=== PATIENT | male | born 1930 | race Caucasian/White ===

== ENCOUNTER 2016-08-29 08:45 | Day surgery (SDC) | payer MEDICARE, BC ==
[2016-08-26 11:16] LABS: BASOPHILS 0.5 % (0-2); EOSINOPHILS 2.9 % (0-7); HEMATOCRIT 41.7 % (42.0-54.0); HEMOGLOBIN 14.4 g/dL (13.5-17.5); IMMATURE GRANULOCYTES 0.6 % (0-5); LYMPHOCYTES 17.9 % (15-50); MCH 32.9 pg (26.0-34.0); MCHC 34.5 g/dL (31.0-37.0); MCV 95.2 fL (80.0-100.0); MEAN PLATELET VOLUME 10.8 fL (7.4-10.4); NEUTROPHILS 68.1 % (40-80); PLATELET COUNT 112 10x3/uL (130-400); RBC 4.38 10x6/uL (4.20-6.10); RDW 15.4 % (11.5-14.5); WBC 6.2 10x3/uL (4.8-10.8)
[2016-08-26 11:23] LABS: ANION GAP 11.2 mmol/L (8-16); CALCIUM 9.1 mg/dL (8.5-10.1); CARBON DIOXIDE 29.7 mmol/L (21.0-32.0); CREATININE - SERUM 1.2 mg/dL (0.6-1.3); POTASSIUM - SERUM 3.9 mmol/L (3.5-5.1)
[~2016-08-29] VITALS: Ht 190.5 cm; Wt 99.8 kg
[~2016-08-29 08:45] MED LIST: BENADRYL25 MG PO; MELATONIN 3 MG1 TAB PO; MULTIPLE VITAMI1 TA1 PO; NAPROXEN250 MG PO; ZIAC 2.5/6.25 M1 TAB PO
[2016-08-29] MEDS ORDERED: CIALIS2.5 MG PO (10:50)
[2016-08-29 11:10] VITALS: BP 174/72; Ht 190.5 cm; Wt 99.8 kg
[2016-08-29] MEDS ORDERED: HYDROCODONE-APA1 TAB PO (13:37)
--- NOTE | 2016-08-29 13:44 | NUR ---
RING REMOVED FROM RIGHT RING FINGER, TAKEN TO GIRL FRIEND. REPORTED TO PT
--- NOTE | 2016-09-01 11:39 | OP ---
PATIENT NAME: INDIANA BUSH JR MEDICAL RECORD: [id number] :30 LOCATION:D.OPS ADMISSION DATE: SURGEON: STACI FRENCH MD DATE OF OPERATION: 08/29/2016 Orthopedic Surgery Operative Note PREOPERATIVE DIAGNOSIS: Ganglion cyst, volar aspect of the right wrist. POSTOPERATIVE DIAGNOSIS: Ganglion cyst, volar aspect of right wrist. PROCEDURE: Excision of ganglion cyst, right wrist. SURGEON: Staci French MD. ANESTHESIA: General. INTRAOPERATIVE COMPLICATIONS: None. SUMMARY OF PATHOLOGIC FINDINGS: The patient had a ganglion cyst, likely from a tendon sheath. OPERATIVE SUMMARY IN DETAIL: After obtaining the appropriate preoperative orthopedic surgery consent as well as anesthetic consultation, evaluation and clearance, the patient was brought to the operating room and placed on the operating table in supine position.. After general laryngeal mask was administered, tourniquet was placed about the proximal aspect of the right upper extremity. Right upper extremity was then prepped and draped in a routine sterile fashion. The arm was elevated and exsanguinated, tourniquet was inflated to 250 mmHg. A transverse incision was made directly across the ganglion cyst. It was taken down to the level ganglion cyst, which was dissected around in its entirety and taken off of the stalk which appeared to attach to the flexor retinaculum. The wound was then irrigated and closed with 4-0 Prolene in routine interrupted fashion. The area was infiltrated locally with 0.25% Marcaine plain. Sterile dressings were applied. Tourniquet was deflated. The patient was awakened, taken to recovery room in stable condition. All final needle and sponge counts were correct. TRANSINT:[id number] Voice Confirmation ID: [id number] DOCUMENT ID: [id number] STACI FRENCH MD at 1139 CC: [id number] DICTATION DATE: 08/29/16 1350 ARRESTING GEAR OPERATOR: 08/29/16 1715 [facility] 08/29/[address] [address]
== END 2016-08-29 15:20 | disposition home or self-care (01) ==
LOC: D.OPS 08:45 → D.PAN 10:45 → D.OPS 11:00 → D.PAN 11:00 → D.OPS 15:20
PROVIDERS: Anesthesiology
DX: M67.431 Ganglion, right wrist (principal); F17.200 Nicotine dependence, unspecified, uncomplicated; I10 Essential (primary) hypertension; K21.9 Gastro-esophageal reflux disease without esophagitis; G47.30 Sleep apnea, unspecified; Z01.812 Encounter for preprocedural laboratory examination

== ENCOUNTER → 2018-08-23 09:39 | Outpatient (CLI) | payer MEDICARE, BC ==
[2016-08-29 11:10] VITALS: BMI 27.5
[~2018-08-23 09:39] MED LIST changes: +CIALIS2.5 MG PO; +HYDROCODONE-APA1 TAB PO
--- NOTE | 2018-08-27 15:06 | EC ---
PATIENT:INDIANA BUSH JR DATE OF SERVICE: 08/23/18 SEX: M MEDICAL RECORD: [id number] DATE OF : 30 LOCATION:[facility] AGE OF PATIENT: 88 ADMISSION DATE: 08/23/18 REFERRING PHYSICIAN: INTERPRETING PHYSICIAN: ALMITA ROBERTS MD ECHOCARDIOGRAM REPORT ECHO CHARGES 4 ECHO COMPLETE Date: 08/23/18 CLINICAL DIAGNOSIS: HTN/MITRAL/TRICUSPID REGURG, AORTIC INSUFF HX CAD/AFIB ECHOCARDIOGRAPHIC MEASUREMENTS (adult normal given) AC root (d.<3.7cm) 3.1 cm LV Septum d (<1.2 cm> 1.2 cm Valve Excursion 1.3 cm LV Septum (systole) 1.4 cm Left Atria (s.<4.0cm> 5.0 cm LVPW d(<1.2cm) 1.2 cm RV (d.<2.3cm) 4.6 cm LVPW (sytole) 1.6 cm LV diastole(<5.6CM) 5.3 cm MV E-F(>70mm/sec) cm LV systole 3.5 cm LVOT Diameter 2.0 cm MV exc.(>10mm) 2.3 cm Est.ejection fraction (50-75%) % DOPPLER: LVIT cm/sec A 53.0 cm/sec E 149 cm/sec LA cm/sec RVSP 26 mmHg LVOT 101 cm/sec AOP1/2T m/s Asc. Ao 228 cm/sec RVOT 95 cm/sec RA cm/sec PA 125 cm/sec AV Gradient Peak 20.81mmHg AV Mean 11.34mmHg AV Area 1.8 cm MV Gradient Peak 11.24mmHg MV Mean 3.96 mmHg MV Area cm COMMENTS: Waterproofer Helper: 2 DEVON HUANG Grappler: 3 Dr. Walters TAPE# PACS Pericardial Effusion N DATE OF SERVICE: Adequate 2D, color flow, spectral Doppler, and M-mode. LVH is present. LV internal dimension is normal. Wall motion is normal. EF is greater than or equal to 55%. Aortic valve is calcified with restriction of leaflet motion. Peak gradient 20 mmHg putting this in the very mild range. There is mild AI present as well. Left atrium is dilated at 5.0 cm. Mitral valve shows no prolapse. Mild MR. Right-sided chambers grossly normal. Mild TR. TRANSINT:[id number] Voice Confirmation ID: [id number] DOCUMENT ID: [id number] ECHOCARDIOGRAM REPORT [id number] INDIANA BUSH JR, GREGORY A MD at 1506 CC: [id number] DICTATION DATE: 08/24/18 1159 TELLER COORDINATOR: 08/24/18 1237 DEP CLI 08/23/18 [place] [id number]
== END | disposition home or self-care (01) ==
LOC: D.HCCARDIO 09:39
PROVIDERS: ATTEND Internal Medicine Interventional Cardiology
DX: I10 Essential (primary) hypertension (principal)

== ENCOUNTER 2019-07-16 06:53 | Outpatient (CLI) | payer MEDICARE, BC ==
[~2019-07-16] VITALS: Ht 190.5 cm; Wt 84.1 kg
--- NOTE | ~2019-07-16 | HEMODYNAMI ---
PATIENT:INDIANA BUSH JR MEDICAL RECORD: [id number] : 30 LOCATION:[facility] ADMISSION DATE: 07/16/19 Generatedon:07/16/201911:17 Patient name: INDIANA BUSH Patient #: [id number] SSN: DO B: 1930 Date of study: 07/16/2019 Page: Of Hemodynamic Procedure Report Patient Data Patient Demographics Procedure consent was obtained First Name: INDIANA Gender: Male Last Name: ELEAZAR Suffix: [facility] Initial: A : 1930 Patient #: [id number] Age: 89 year(s) Race: Unknown Additional ID: [id number] Contact details Address: [address] [place] [address] [place] State: [place] City: [place] Zip code: [address] Past Medical History Allergies Allergen Reaction Date Comments Reported Other allergy 07/16/2019 hydrococone Other allergy 07/16/2019 hydrocodone Admission Admission Data Admission Date: 07/16/2019 Admission Time: 6:53 Procedure Procedure Types Cath Procedure Peripheral Cath Diagnostic Procedure Crib Tender Peripheral Procedures Abd/Extremity Extremities Right Lower Ext Arterio Procedure Description Procedure Date Procedure Date: 07/16/2019 Procedure Start Time: 9:15 Procedure Staff Name Function Herbie Oliva MD Performing Physician Lois Santos RT Low Pressure Firer Tenisha Truong RN Nurse Taj Rolon RT Scrub Procedure Data Cath Procedure Fluoroscopy Diagnostic fluoroscopy Total fluoroscopy Time: time: 31.1 min 31.1 min Diagnostic fluoroscopy Total fluoroscopy dose: 261 dose: 261 mGy mGy Procedure Medications Medication Administration Route Dosage Heparin Flush Bag added to field 3 bags (1000units/500ml NS) Lidocaine 1% added to field 20 Versed I.V. 1 mg Fentanyl I.V. 50 mcg Heparin Bolus I.V. 4000 units Heparin Bolus I.V. 2000 units Heparin Bolus I.V. 2000 units Hemodynamics Rest Heart Rate: 49 (bpm) Snapshots Pre Cath Intra NCS Post Cath Vital Signs Time Heart Resp SPO2 etCO2 NIBP (mmHg) Rhythm Pain Sedation Rate (ipm) (%) (mmHg) Status Level (bpm) 9:09:31 41 27 100 15.8 Measuring NSR 0 (11) 10(A) , No pain 9:10:53 53 11 100 27.9 Time NSR 0 (11) 10(A) Exceeded , No pain 9:13:02 48 15 100 31.7 186/91(156) NSR 0 (11) 10(A) , No pain 9:17:37 40 7 100 20.4 176/73(165) NSR 0 (11) 10(A) , No pain 9:22:05 42 17 100 25.7 166/83(146) NSR 0 (11) 10(A) , No pain 9:26:29 47 18 100 16.6 147/76(130) NSR 0 (11) 8(A) , No pain 9:30:49 38 17 100 21.1 145/62(120) NSR 0 (11) 8(A) , No pain 9:35:15 45 13 100 16.6 134/48(124) NSR 0 (11) 8(A) , No pain 9:39:29 39 15 100 20 139/75(121) NSR 0 (11) 8(A) , No pain 9:43:45 53 18 100 20.4 126/74(106) NSR 0 (11) 8(A) , No pain 9:48:45 39 15 99 0 Measuring NSR 0 (11) 8(A) , No pain 9:49:03 44 15 100 1.5 143/68(131) NSR 0 (11) 8(A) , No pain 9:53:21 44 14 99 6.8 157/75(135) NSR 0 (11) 8(A) , No pain 9:57:41 46 12 100 11.3 157/70(115) NSR 0 (11) 8(A) , No pain 10:02:01 40 17 99 21.1 146/79(133) NSR 0 (11) 8(A) , No pain 10:06:24 33 15 100 0 152/65(138) NSR 0 (11) 8(A) , No pain 10:10:44 44 17 100 18.9 159/76(142) NSR 0 (11) 8(A) , No pain 10:15:08 41 17 100 9.8 167/73(151) NSR 0 (11) 8(A) , No pain 10:19:32 33 14 100 0 129/82(116) NSR 0 (11) 8(A) , No pain 10:24:31 32 13 100 11.3 Measuring NSR 0 (11) 8(A) , No pain 10:25:53 43 15 100 0 Time NSR 0 (11) 8(A) Exceeded , No pain 10:28:06 36 16 100 16.6 188/84(163) NSR 0 (11) 8(A) , No pain 10:32:34 38 17 100 15.8 168/88(154) NSR 0 (11) 8(A) , No pain 10:37:03 36 17 100 12.1 189/66(159) NSR 0 (11) 8(A) , No pain 10:41:31 38 13 100 12 198/98(183) NSR 0 (11) 8(A) , No pain 10:46:30 43 16 100 27.9 Measuring NSR 0 (11) 8(A) , No pain 10:47:03 51 19 100 16.6 196/95(168) NSR 0 (11) 8(A) , No pain 10:51:35 34 13 100 0 201/88(168) NSR 0 (11) 8(A) , No pain 10:56:34 37 16 100 16.6 Measuring NSR 0 (11) 8(A) , No pain 10:57:18 41 10 100 0 192/84(161) NSR 0 (11) 8(A) , No pain 11:01:48 43 17 100 15.1 204/91(190) NSR 0 (11) 8(A) , No pain 11:06:18 47 10 100 15.8 195/92(170) NSR 0 (11) 8(A) , No pain 11:10:55 37 12 100 1.5 209/77(189) NSR 0 (11) 8(A) , No pain 11:15:41 41 13 100 10.5 194/58(111) NSR 0 (11) 8(A) , No pain Medications Time Medication Route Dose Verified Delivered Reason Notes Effe ctiveness by by 8:53:08 Heparin Flush added 3 Herbie Stoner used for Bag to bags Hazel Oliva procedure (1000units/500ml field MD CARRILLO NS) 8:53:21 Lidocaine 1% added 20ml Herbie Stoner for local to vial Hazel Oliva anesthetic field MD CARRILLO 9:17:56 Versed I.V. 1 mg Herbie Steven for Hazel Truong RN sedation 9:18:08 Fentanyl I.V. 50 Herbie Steven for mcg Hazel Truong RN sedation 9:23:23 Heparin Bolus I.V. 4000 Herbie Tenisha Per units Hazel Truong RN physician 10:04:26 Heparin Bolus I.V. 2000 Herbie Steven Per units Hazel Truong RN physician 10:53:09 Heparin Bolus I.V. 2000 Herbie Steven Per units Hazel Truong RN physician Procedure Log Time Note 8:13:11 Use device set IR Diagnostic 8:15:11 BENTSON 145cm wire ([id number]) opened to sterile field. 8:15:12 Micropuncture VSI 4FR kit opened to sterile field. 8:15:12 SHEATH 5FR [place] ([id number]) opened to sterile field. 8:15:13 Cordis 6Fr BRITE TIP 11cm sheath opened to sterile field. 8:15:14 AMPLATZ Super Stiff 75cm wire ([id number]) opened to sterile field. 8:15:15 Tegaderm 4 x 4 (1626W) opened to sterile field. 8:15:17 Sterile Angiographic Pack opened to sterile field. 8:15:18 Bag Decanter (2002S) opened to sterile field. 8:53:08 Heparin Flush Bag (1000units/500ml NS) 3 bags added to field was administered by Herbie Oliva MD; used for procedure; Verbal order read back and verified. 8:53:21 Lidocaine 1% 20ml vial added to field was administered by Herbie gilmore MD; for local anesthetic; Verbal order read back and verified. 8:57:30 Time tracking: Regular hours (M-F 7:00 - 5:00) 9:07:29 Plan of Care:Hemodynamics will remain stable., Cardiac rhythm will remain stable., Comfort level will be maintained., Respiratory function will remain adequate., Patient/ family verbilizes understanding of procedure., Procedure tolerated without complication., Recovers from procedure without complications.. 9:07:35 Patient received from Outpatients to IR Alert and oriented. Tansferred to table in Supine position. 9:07:38 Signed procedure consent form obtained from patient. 9:07:40 ECG and BP/O2 sat monitors applied to patient. 9:07:41 Vital chart was started 9:07:42 Baseline sample Acquired. 9:07:46 Full Disclosure recording started 9:07:49 - 9:07:55 H&P Date Dictated: 07/16/2019 Within 30 days and on chart., H&P Addendum completed by physician on day of procedure. (MUST COMPLETE FOR ALL OUTPATIENTS). 9:07:56 Pre-procedure instructions explained to patient. 9:07:57 Pre-op teaching completed and patient verbalized understanding. 9:07:59 Family unavailable. 9:08:02 Patient NPO since Midnight. 9:08:48 Patient allergic to Other allergyhydrococone 9:09:15 Patient allergic to Other allergyhydrocodone 9:09:31 Is the patient allergic to Iodine/contrast media? No. 9:09:35 Is patient on blood thinner?No 9:09:38 Patient diabetic? No. 9:09:39 - 9:09:43 ----Pre-sedation anethsthesia assessment.---- 9:09:47 Previous problem with sedation/anesthesia? No ? 9:10:02 Snore? No 9:10:05 Sleep apnea? No 9:10:07 Deviated septum? No 9:10:10 Opens mouth fully? Yes 9:10:11 Sticks out tongue? Yes 9:10:14 Airway obstruction? No , a fib, arrythmia? 9:10:18 Dentures? No ? 9:10:20 - 9:10:24 Pre procedure: right dorsailis pedis pulse Doppler 9:10:29 Pre procedure: left dorsailis pedis pulse Doppler 9:10:33 Pre procedure: right posterior tibial pulse Doppler 9:10:39 Pre procedure: left posterior tibial pulse Doppler 9:10:58 Right groin area was prepped with chlora-prep and draped in sterile fashion 9:11:00 - 9:13:13 ROADRUNNER .035 145 glide wire ([id number]) opened to sterile field. 9:13:15 CXI Catheter 90cm (X00540) opened to sterile field. 9:13:47 Physician arrived 9:13:49 --------ALL STOP TIME OUT------ 9:13:49 Final Timeout: patient, procedure, and site verified with staff and physician. All members of the team are in agreement. 9:14:12 Fire Safety Assessment: A--An alcohol-based skin anteseptic being used preoperatively., C--Open oxygen or nitrous oxide is being used. 9:14:24 2) 60-89 Mildly reduced kidney function, and other findings (as for stage 1) point to kidney disease. 9:14:45 Maximum allowable contrast dose (3.7 X eGFR X 0.75)171 ml. 9:15:30 Baseline sample Acquired. 9:15:40 Procedure started. 9:15:44 Local anesthetic to right femoral artery with Lidocaine 1% by Herbie Oliva MD.INITIAL ACCESS ONLY 9:15:47 Arterial access obtained using ultrasound guidance. 9:17:56 Versed 1 mg I.V. was administered by Tenisha Truong RN; for sedation; Verbal order read back and verified. 9:18:08 Fentanyl 50 mcg I.V. was administered by Tenisha Truong RN; for sedation ; Verbal order read back and verified. 9:23:23 Heparin Bolus 4000 units I.V. was administered by Tenisha Truong RN; Per physician; Verbal order read back and verified. 9:35:35 Viance Crossing Catheter Standard ([id number]) opened to sterile field. 9:35:44 CHOICE PT Extra Support J 300cm guide wire ([id number]) opened to steril e field. 9:35:56 Tegaderm 6 x 8 (1628) opened to sterile field. 9:49:27 COIL Tornado 4MM (G56739) opened to sterile field. 9:55:39 GLIDE WIRE ANGLE 260cm (CH6609) opened to sterile field. 10:03:38 INFLATOR BasixTOUCH (TS8127) opened to sterile field. 10:03:40 Enteer Guidewire Stiff opened to sterile field. 10:03:41 Enteer Re-entry cath 2.75 opened to sterile field. 10:04:02 CHOICE PT Extra Support J 300cm guide wire ([id number]) opened to steril e field. 10:04:26 Heparin Bolus 2000 units I.V. was administered by Tenisha Truong RN; Per physician; Verbal order read back and verified. 10:17:00 CXI SUPPORT .018 150CM STR catheter (J71389) opened to sterile field. 10:32:44 Enteer Guidewire Stiff opened to sterile field. 10:45:16 CHOICE PT Extra Support J 300cm guide wire (8066669S6) opened to steril e field. 10:45:50 Inflate balloon Inflation number: 1 A NANOCROSS ELITE 2MM X 80 X 150 ([id number]) was prepped and advanced across the Undefined1 , then inflated. 10:50:22 Inflate balloon Inflation number: 2 A [place]AN[place]OSS ELITE .014 3.5MM-3MM X 210 X 150 ([id number]) was prepped and advanced across the Undefined1 , then inflated . 10:53:09 Heparin Bolus 2000 units I.V. was administered by Tenisha Truong RN; Per physician; Verbal order read back and verified. 11:00:04 COPILOT Valve Control (4742962) opened to sterile field. 11:13:05 EXOSEAL 6Fr (EX600) opened to sterile field. 11:14:19 Procedure ended.(Physican Out) 11:14:47 Fluoroscopy time 31.10 minutes. 11:14:53 Fluoroscopy dose: 261 mGy 11:14:53 Flurop Dose total: 261 11:15:39 Procedure and supply charges have been captured, reviewed, submitted an d are correct. 11:16:42 Report given to Outpatients. 11:17:38 Vital chart was stopped Intervention Summary Intervention Notes Time ActionType Lesion and Equipment Used Action# Pressure Duration Attributes 10:45:50 Inflate Undefined1 NANOCROSS ELITE 1 0 00:00 balloon 2MM X 80 X 150 ([id number]) 10:50:22 Inflate Undefined1 NANOCROSS ELITE 2 0 00:00 balloon .014 3.5MM-3MM X 210 X 150 ([id number]) Device Usage Item Name Manufacture Quantity Catalog Number Hospital Part Current Minimal Lot# / Charge Number Stock Stock Serial# Code FEDERICO 145cm Cook [employer] 1 [id number] [id number] 5 wire ([id number]) Micropuncture VSI VASCULAR 1 7266V 367043 213639 5 VSI 4FR kit SOLUTIONS SHEATH 5FR Terumo 1 [id number] 614144 829973 130745 5 [place] (ZSV180) Cordis 6Fr BRITE Cardinal 1 [id number] 764549 447189 5 TIP 11cm sheath Health AMPLATZ Super [place] 1 [id number] 897679 127471 709054 5 Stiff 75cm wire Scientific ([id number]) Tegaderm 4 x 4 3M 1 1626W 523185 035838 190878 5 (1626W) Sterile Cardinal 1 [id number] 078459 866682 5 Angiographic Health Pack Bag Decanter Microtek 1 468886 06958 096733 5 () Medical Inc. ROADRUNNER .035 [employer] 1 U42875 386062 516958 136685 5 [id number] 145 glide wire (M06314) CXI Catheter [facility] 1 W08416 368001 287223 482196 5 [id number] 90cm (M89075) Viance Crossing Medtronic 1 VNC-SD-150 963034 422900 555554 5 Catheter Standard ([id number]) CHOICE PT Extra [place] 3 [id number] 209624 5 Support J 300cm Scientific guide wire ([id number]) Tegaderm 6 x 8 3M 1 1628 623484 157555 5 (1628) COIL Tornado 4MM [employer] 1 O98615 812787 049800 5 8297200 (H26257) GLIDE WIRE ANGLE Terumo 1 ZZ7858 442301 702527 019250 5 260cm (IU5117) INFLATOR Merit 1 TA9992 133422 754128 223146 5 [place] (YZ6465) Enteer Guidewire Medtronic 1 [id number] 769841 707848 092497 1 Stiff Enteer Re-entry Medtronic 1 [id number] 119573 518922 665273 1 cath 2.75 CXI SUPPORT .018 [employer] 1 G89384 754085 349286 513347 5 [id number] 150CM STR catheter (Y92083) NANOCROSS ELITE Medtronic 1 [id number] 055130 459341 1 2MM X 80 X 150 ([id number]) NANOCROSS ELITE Medtronic 1 [id number] 923160 7229769 1 .014 3.5MM-3.MM X 210 X 150 ([id number] COPILOT Valve Gibbs 1 [id number] 964367 046063 545913 5 Control Vascular (4007491) EXOSEAL 6Fr Cardinal 1 EX600 363493 850939 461124 10 [id number] (EX600) Health Signature Audit [place] Stage Time Signature Unsigned Intra-Procedure 07/16/2019 Lois Santos 11:17:33 AM RT(R) [facility] [address] [place] [address]
[2019-07-16 07:15] LABS: HEMATOCRIT 39.7 % (42.0-54.0); HEMOGLOBIN 13.1 g/dL (13.5-17.5); LYMPHOCYTES 26.6 % (15-50); MCH 30.8 pg (26.0-34.0); MCV 93.2 fL (80.0-100.0); MEAN PLATELET VOLUME 9.8 fL (7.4-10.4); NEUTROPHILS 61.9 % (40-80); RBC 4.26 10x6/uL (4.20-6.10); RDW 16.4 % (11.5-14.5); WBC 6.4 10x3/uL (4.8-10.8)
[2019-07-16 07:17] LABS: PLATELET COUNT 153 10x3/uL (130-400)
[2019-07-16 07:23] LABS: ANION GAP 9.6 mmol/L (8-16); CALCIUM 8.8 mg/dL (8.5-10.1); CARBON DIOXIDE 30.3 mmol/L (21.0-32.0); CREATININE - SERUM 1.2 mg/dL (0.6-1.3); POTASSIUM - SERUM 3.9 mmol/L (3.5-5.1)
[2019-07-16 07:32] LABS: APTT 34.5 SECONDS (22.8-39.4); INR 1.06 (0.85-1.17); PROTIME 13.8 SECONDS (11.6-15.0)
[2019-07-16 07:47] VITALS: BP 166/76; Ht 190.5 cm; Wt 84.1 kg
--- NOTE | 2019-07-16 14:06 | NUR ---
1400 VOIDED 200ML URINE PER URINAL. Henok LAND R.N.
--- NOTE | 2019-07-16 16:30 | NUR ---
ASSISTED PATIENT TO STAND AND WALK AROUND ROOM, AMBULATES WITHOUT UNSTEADINESS OR DIZZINESS. LEFT FOREARM PIV DC'D WITH TIP INTACT. DISCHARGE INSTRUCTIONS REVIEWED WITH PATIENT. PATIENT'S FRIEND RODERICK WHO WAS SUPPOSED TO PROVIDE TRANSPORTATION HOME HAS NOW CALLED AND IS ABLE TO COME PICK PATIENT UP. SHE STATES HER PHONE MUST'VE BEEN MESSED UP BECAUSE SHE HASN'T HAD ANY CALLS. 1650 DISCHARGED HOME VIA WHEELCHAIR TO PRIVATE VEHICLE WITH FRIEND RODERICK
== END 2019-07-16 16:50 | disposition home or self-care (01) ==
LOC: D.SP 06:53 → D.RAD 09:00 → D.SP 16:50
PROVIDERS: ATTEND Radiology Diagnostic Radiology
DX: I70.201 Unspecified atherosclerosis of native arteries of extremities, right leg (principal); I10 Essential (primary) hypertension; I71.4 Abdominal aortic aneurysm, without rupture; Z72.0 Tobacco use